=== PATIENT | female | born 1990 | race American Indian/Alaskan Native ===

== ENCOUNTER 2019-02-04 08:33 | Emergency (ER) | payer OTHER ==
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
[2019-02-04 10:37] VITALS: BP 120/80
== END 2019-02-04 10:28 | disposition home or self-care (01) ==
LOC: ED 08:33
DX: M25.562 Pain in left knee (principal); V49.49XA Driver injured in collision with other motor vehicles in traffic accident, initial encounter; Y93.89 Activity, other specified; Y92.488 Other paved roadways as the place of occurrence of the external cause; Y99.8 Other external cause status
CPT/HCPCS: 99282

== ENCOUNTER 2021-05-26 20:01 | Emergency (ER) | payer OTHER ==
[2021-05-26 21:05] VITALS: BP 133/80
[2021-05-26] MEDS ORDERED: IBUPROFEN 600 MG TAB PO ONE (22:08)
[2021-05-26] MEDS ORDERED: ACETAMINOPHEN 500 MG TAB PO ONE (22:08)
--- NOTE | 2021-05-26 22:13 | Emergency Department Report ---
ED Upper Extremity Inj HPI - General Chief Complaint: Extremity Injury, Upper Stated Complaint: INJURED FINGER/HAND Source: patient Mode of arrival: Ambulatory Limitations: No Limitations - History of Present Illness Initial Comments: Patient is a 30-year-old -[place] female with a history of chronic recurrent ovarian cysts presents to the ED with complaint of acute onset persistent left wrist pain after she accidentally bumped her left wrist against a metallic object at work 3 days ago. Patient states that any movement of the left wrist makes the pain worse. Patient denies fall, numbness and tingling or weakness of upper extremities bilaterally, nausea, vomiting, chest pain or shortness of breath, head or neck injuries, or headache. MD Complaint: Injury to:: left, wrist (Pain) -: Sudden, days(s) (3) Other Extremity Injury: Wrist: Left (Left wrist pain) Other Injuries: none Place: work Severity scale (0 -10): 7 Improves With: none Worsens With: movement of extremity Context: direct blow (Left wrist hit by a metallic object), injury Associated Symptoms: denies other symptoms. denies: weakness, numbness, neck pain, suspects foreign body, heard/felt popping sensat, other - Related Data Previous Rx's Medication Instructions Recorded Last Taken Type Cyclobenzaprine [Flexeril] 10 mg PO QHS PRN #20 tablet 02/04/19 Unknown Rx Ibuprofen [Motrin 800 MG tab] 800 mg PO Q8HR PRN #30 tablet 05/26/21 Unknown Rx predniSONE [Deltasone] 40 mg PO QDAY #10 tab 05/26/21 Unknown Rx Allergies Allergy/AdvReac Type Severity Reaction Status Date / Time No Known Allergies Allergy Verified 05/26/21 21:05 ED Review of Systems ROS: Stated complaint: INJURED FINGER/HAND Other details as noted in HPI Constitutional: denies: chills, fever Eyes: denies: eye pain, eye discharge, vision change ENT: denies: ear pain, throat pain Respiratory: denies: cough, shortness of breath, wheezing Cardiovascular: denies: chest pain, palpitations Endocrine: no symptoms reported Gastrointestinal: denies: abdominal pain, nausea, diarrhea Genitourinary: denies: urgency, dysuria, discharge Musculoskeletal: arthralgia (Left wrist injury and pain). denies: back pain, joint swelling Skin: denies: rash, lesions Neurological: denies: headache, weakness, paresthesias Psychiatric: denies: anxiety, depression Hematological/Lymphatic: denies: easy bleeding, easy bruising ED Past Medical Hx - Past Medical History Previous Medical History?: Yes Additional medical history: OVARIN CYST - Surgical History Past Surgical History?: Yes Additional Surgical History: OVARY SURG - Social History Smoking Status: Never Smoker Substance Use Type: Alcohol - Medications Home Medications: Home Medications Medication Instructions Recorded Confirmed Last Taken Type Cyclobenzaprine [Flexeril] 10 mg PO QHS PRN #20 tablet 02/04/19 Unknown Rx Ibuprofen [Motrin 800 MG tab] 800 mg PO Q8HR PRN #30 tablet 05/26/21 Unknown Rx predniSONE [Deltasone] 40 mg PO QDAY #10 tab 05/26/21 Unknown Rx ED Physical Exam - General Limitations: No Limitations General appearance: alert, in no apparent distress - Head Head exam: Present: atraumatic, normocephalic, normal inspection - Eye Eye exam: Present: normal appearance, PERRL, EOMI Pupils: Present: normal accommodation - ENT ENT exam: Present: normal exam, normal orophraynx, mucous membranes moist, TM's normal bilaterally, normal external ear exam - Neck Neck exam: Present: normal inspection, full ROM. Absent: tenderness - Respiratory Respiratory exam: Present: normal lung sounds bilaterally. Absent: respiratory distress, wheezes, rales, rhonchi, chest wall tenderness, accessory muscle use, decreased breath sounds - Cardiovascular Cardiovascular Exam: Present: regular rate, normal rhythm, normal heart sounds. Absent: systolic murmur, diastolic murmur, rubs, gallop - GI/Abdominal GI/Abdominal exam: Present: soft, normal bowel sounds. Absent: tenderness, guarding, rebound, hyperactive bowel sounds, hypoactive bowel sounds, organomegaly - Extremities Exam Extremities exam: Present: normal inspection, tenderness (Palpable left wrist tenderness with limited range of motion due to pain), normal capillary refill. Absent: full ROM (Left wrist limited range of motion due to pain), pedal edema, joint swelling - Back Exam Back exam: Present: normal inspection, full ROM. Absent: tenderness, CVA tenderness (R), CVA tenderness (L), muscle spasm, paraspinal tenderness, vertebral tenderness - Neurological Exam Neurological exam: Present: alert, oriented X3, CN II-XII intact, normal gait, reflexes normal - Psychiatric Psychiatric exam: Present: normal affect, normal mood - Skin Skin exam: Present: warm, dry, intact, normal color. Absent: rash ED Course Vital Signs 05/26/21 20:59 Temperature 98.4 F Pulse Rate 60 Respiratory 14 Rate Blood Pressure 133/80 [Right] O2 Sat by Pulse 100 Oximetry ED Medical Decision Making - Medical Decision Making This is a 30-year-old -[place] female with a history of chronic recurrent ovarian cysts presents to the ED with complaint of acute onset persistent left wrist pain after she accidentally bumped her left wrist against a metallic object at work 3 days ago. Patient states that any movement of the left wrist makes the pain worse. In the ED, patient is alert and oriented x3 and is not in any distress. Patient was treated for pain in the ED. patient left wrist was splinted with Velcro splint, and the patient was discharged home on pain medications and advised to follow-up with her primary care physician in 7 to 10 days for reevaluation or return to the ED immediately if symptoms get worse. - Differential Diagnosis Wrist contusion; tendinitis; muscle strain; wrist sprain Critical care attestation.: If time is entered above; I have spent that time in minutes in the direct care of this critically ill patient, excluding procedure time. ED Disposition Clinical Impression: Tendinitis of left wrist Sprain of left wrist Qualifiers: Encounter type: initial encounter Qualified Code(s): S63.502A - Unspecified sprain of left wrist, initial encounter Disposition: HOME / SELF CARE / HOMELESS Is pt being admited?: No Does the pt Need Aspirin: No Condition: Stable Instructions: Wrist Sprain, Adult, Tendinitis, [id number] Additional Instructions: Take medication with food, drink plenty of fluids and follow-up with your primary care physician in 7 to 10 days for reevaluation. Return to the ED immediately if symptoms get worse. Prescriptions: predniSONE [Deltasone] 40 mg PO QDAY #10 tab Ibuprofen [Motrin 800 MG tab] 800 mg PO Q8HR PRN #30 tablet PRN Reason: Pain Referrals: [facility] [Provider Group] - 3-5 Days Time of Disposition: 22:13 Print Language: TURKISH
== END 2021-05-27 01:21 | disposition home or self-care (01) ==
LOC: ED 20:01
DX: S63.502A Unspecified sprain of left wrist, initial encounter (principal); M77.22 Periarthritis, left wrist; W22.8XXA Striking against or struck by other objects, initial encounter; Y93.89 Activity, other specified; Y92.89 Other specified places as the place of occurrence of the external cause; Y99.8 Other external cause status
CPT/HCPCS: 99282; 99283